=== PATIENT | female | born 1955 | race Caucasian/White ===

== ENCOUNTER 2018-12-17 06:44 | Emergency (ER) | payer OTHER ==
[~2018-12-17] VITALS: Ht 157.5 cm; Wt 49.9 kg
[2018-12-17] MEDS ORDERED: SOMA350 MG PO (06:59)
[2018-12-17] MEDS ORDERED: MORPHINE SULFAT30 M1 PO (06:59)
[2018-12-17] MEDS ORDERED: SYNTHROID125 MCG PO (07:00)
== END 2018-12-17 07:37 | disposition home or self-care (01) ==
LOC: ED 06:44
DX: S02.2XXA Fracture of nasal bones, initial encounter for closed fracture (principal); F17.200 Nicotine dependence, unspecified, uncomplicated; Z90.710 Acquired absence of both cervix and uterus; Z79.899 Other long term (current) drug therapy; W18.30XA Fall on same level, unspecified, initial encounter
CPT/HCPCS: 99283